=== PATIENT | male | born 1975 | race Caucasian/White ===

== ENCOUNTER → 2017-05-01 | Outpatient (CLI) | payer OTHER ==
--- NOTE | ~2017-05-01 | CT4 ---
[facility] A Service [facility] RADIOLOGY TEXT RESULTS PATIENT: AMADA HARRIS LOCATION: [facility] : 71 UNIT #: [id number] AGE: [address]: Brian Sheriff MD SEX: M ORDER DR: [id number] [place], [place] [address] [id number] O MR#: [id number] Acc #: [id number] NAME: AMADA HARRIS : 1975 SEX: M STUDY DATE/TIME: 05/01/2017 17:19 UNIT: [facility] ROOM: STUDY DESCRIPTION: CT Abd and Pelv Wo Cont Attending Physician: Brian Sheriff M.D. Referring Physician: Brian Sheriff M.D. Ordering Physician: Brian Sheriff M.D. Primary Care Physician: Gene Hickman Jr., M.D. MEDICAL IMAGING REPORT This report is preliminary unless electronic signature is present EXAM CT abdomen and pelvis without contrast INDICATIONS Left-sided lower abdominal and flank pain for the past week. The CT exam was performed with one or more of the following radiation dose reduction techniques: automatic exposure control, adjustment of mA and/or kV according to patient size, and iterative reconstruction. PROCEDURE' Unenhanced CT of the abdomen and pelvis COMPARISON: None FINDINGS The included lung bases are clear. The liver, spleen, adrenal glands, pancreas and gallbladder unremarkable. Bowel loops are nondilated. Appendix is normal. 3 mm nonobstructing calculus left kidney. 6 mm calculus in the distal left ureter. No significant hydronephrosis. Pelvis without contrast: No radiodense bladder calculus. No pelvic mass. No aggressive appearing bone lesion. IMPRESSION 1. 6 mm calculus distal left ureter. No hydronephrosis. 2. 3 mm nonobstructing calculus in the left kidney. Dictated by... [facility] A Service [facility] RADIOLOGY TEXT RESULTS PATIENT: AMADA HARRIS LOCATION: [facility] : 71 UNIT #: [id number] AGE: [address]: Brian Sheriff MD SEX: M ORDER DR: Jeramie Shani M.D. THIS IS AN ELECTRONICALLY VERIFIED REPORT Jeramie Sahni M.D. at 05/03/2017 2:39 PM EED/adiel TD: 05/02/2017 08:23 JOB #: [id number] MEDICAL IMAGING REPORT Page 1 of 1 COPY
== END | disposition home or self-care (01) ==
LOC: CCAT 17:00
DX: N20.2 Calculus of kidney with calculus of ureter (principal); F17.200 Nicotine dependence, unspecified, uncomplicated; M54.5 Low back pain
CPT/HCPCS: 74176